=== PATIENT | male | born 1955 | race Caucasian/White ===

== ENCOUNTER → 2017-06-23 08:51 | Outpatient (CLI) | payer OTHER, SELFPAY ==
--- NOTE | 2017-06-23 08:53 | ECHOD_ITS ---
Reason For Study: AORTIC VAVLE REPLACEMENT Procedure This was a 2D Doppler, Color Flow transthoracic echocardiogram. Exam performed in department. Left Ventricle Normal LV size. The estimated ejection fraction is 52 %. Left ventricular systolic function is lower limits of normal. Transmitral diastolic flow velocities suggest severe (stage 3) diastolic dysfunction. No regional wall motion abnormalities noted. Right Ventricle Normal RV size. Normal systolic function. Atria The left atrium is mildly enlarged. The right atrium is moderately enlarged. Mitral Valve Normal mitral valve. Tricuspid Valve Normal tricuspid valve. Mild (1+) tricuspid valve insufficiency. Pulmonary artery systolic pressure is 25 mmHg. Aortic Valve Peak aortic valve gradient 19 mmHg. Mean aortic valve gradient 10 mmHg. Mild aortic stenosis. Calculated aortic valve area (continuity equation) is 1.3 cm2. Stable appearing mechanical aortic valve apparatus. Mild transvalvular insufficiency of the aortic valve. Pulmonic Valve Normal pulmonic valve. Trivial pulmonic valve insufficiency. Great Vessels Normal aortic root. The pulmonary artery is normal size. Normal inferior vena cava. Pericardium/Pleural No pericardial effusion. MMode/2D Measurements & Calculations LVIDd: 5.6 cm IVSd: 0.94 cm LVOT diam: 2.1 cm LVIDs: 3.8 cm LVPWd: 1.2 cm LVOT area: 3.6 cm2 RVDd: 3.4 cm FS: 32.5 % LA dimension: 5.2 cm LAV(MOD-bp): 56.3 ml EDV(MOD-sp4): 144.1 ml LAV(MOD-bp) Indexed: 26.7 ml/m2 ESV(MOD-sp4): 74.6 ml LAV(MOD-sp2): 39.5 ml EF(MOD-sp4): 48.2 % LAV(MOD-sp4): 64.6 ml EDV(MOD-sp2): 137.2 ml SV(MOD-sp4): 69.4 ml SV(MOD-sp2): 74.9 ml EF(MOD-sp2): 54.6 % LA A4 area: 21.5 cm2 RA A4 area: 24.1 cm2 Doppler Measurements & Calculations MV E max bre: 77.1 cm/sec Ao V2 max: 216.1 cm/sec AI max bre: 173.0 cm/sec MV A max bre: 34.0 cm/sec Ao max P.9 mmHg AI max P.2 mmHg MV E/A: 2.3 Ao V2 mean: 145.3 cm/sec AI dec slope: 128.1 cm/sec2 Ao mean P.8 mmHg AI P1/2t: 395.6 msec Ao V2 VTI: 46.8 cm COLE(I,D): 1.5 cm2 COLE(V,D): 1.3 cm2 LV V1 max: 80.7 cm/sec SV(LVOT): 71.7 ml PA V2 max: 83.6 cm/sec LV V1 max P.6 mmHg LV V1 mean P.4 mmHg LV V1 mean: 55.6 cm/sec LV V1 VTI: 20.1 cm TR max bre: 225.2 cm/sec TR max P.3 mmHg Interpretation Summary Normal LV size. The estimated ejection fraction is 52 %. Left ventricular systolic function is lower limits of normal. Transmitral diastolic flow velocities suggest severe (stage 3) diastolic dysfunction Stable appearing mechanical aortic valve apparatus. Calculated aortic valve area (continuity equation) is 1.3 cm2. Mild (1+) tricuspid valve insufficiency. Pulmonary artery systolic pressure is 25 mmHg. Compared to prior study, there is no significant change. Ordering Physician: Jordan Duenas Referring Physician: JENNY SAMS Performed By: Duyen Choudhury, RDCS, RVT
== END ==
PROVIDERS: Family Provider Family Medicine; PCP Family Medicine; Visit Provider Internal Medicine Cardiovascular Disease
DX: Z95.2 Presence of prosthetic heart valve (principal)
CPT/HCPCS: 93306

== ENCOUNTER → 2018-01-01 17:01 | Outpatient (CLI) | payer OTHER, SELFPAY ==
[2018-01-01 17:38] LABS: Anion Gap 4 (5-15); BUN 18 mg/dL (7-18); BUN/Creat Ratio 17.8 RATIO (10-20); Calcium,Total 9.1 mg/dL (8.5-10.1); Chloride 98 mmol/L (98-107); Creatinine, Serum 1.01 mg/dL (0.70-1.30); EST Glomerular Filtration Rate 80 mL/min (>60); Est Glom Filt Rate - Afr Amer 97 mL/min (>60); Glucose 93 mg/dL (74-106); Potassium 3.8 mmol/L (3.5-5.1); Sodium Level 134 mmol/L (136-145)
== END ==
PROVIDERS: Family Provider Family Medicine; PCP Family Medicine; Referring Provider Internal Medicine Cardiovascular Disease; Visit Provider Internal Medicine Cardiovascular Disease
DX: I71.2 Thoracic aortic aneurysm, without rupture (principal)
CPT/HCPCS: 36415; 80048

== ENCOUNTER → 2018-01-12 07:46 | Outpatient (CLI) | payer OTHER, SELFPAY ==
--- NOTE | 2018-01-12 07:48 | CT_ITS ---
STUDY: CTA CHEST REASON FOR EXAM: Male, 62 years old. Follow-up aortic dissection and repair. RADIATION DOSAGE (If Supplied By Facility): CTDIvol = ( 27.33 ) mGy, DLP = ( 608.77 ) mGycm TECHNIQUE: The examination was performed with the intravenous administration of 100 ml of Isovue 370 contrast material. Post-processing of the angiographic images was performed, with multiplanar reformation and 3D reconstruction. Individualized dose optimization techniques were used for this CT. COMPARISON: 11/24/2015 FINDINGS: There are stable postsurgical changes from a sternotomy and repair of the aortic root and the ascending aorta. There is a stable dissection with an intimal flap originating at the level of the distal ascending aorta and extending into the aortic arch mid descending thoracic aorta. Both the true and false lumina are opacified. The great vessels are patent and normal in caliber. There is no dissection in the visualized great vessels. The coronary arteries are visualized and are patent. The heart and pericardium are within normal limits. There are no filling defects in the pulmonary arteries to suggest pulmonary embolus. There are no pulmonary infiltrates or pleural effusions. There is no pneumothorax. Images through the upper abdomen demonstrate a stable cyst in the left kidney. There are no destructive osseous lesions. There is stable scoliosis noted in the spine. CT/CTA Chest W/WO Contrast IMPRESSION: Stable postsurgical changes from sternotomy and repair of the aortic root and ascending aorta. Patent great vessels with no evidence of dissection. Stable dissection originating in the distal ascending aorta which extends through the aortic arch and descending thoracic aorta. Electronically Signed: Kevyn Palmer, at 17:07 EDT Tel , Service support ,
== END ==
PROVIDERS: Family Provider Family Medicine; PCP Family Medicine; Referring Provider Internal Medicine Cardiovascular Disease; Visit Provider Internal Medicine Cardiovascular Disease
DX: I71.2 Thoracic aortic aneurysm, without rupture (principal)
CPT/HCPCS: 71275; Q9967

== ENCOUNTER 2018-11-09 16:07 | Emergency (ER) | payer OTHER, SELFPAY ==
[2018-07-16 09:04] VITALS: BMI 26.6
[2018-11-09 16:07] VITALS: BP 164/75; PULSE 43; RESP 18; TEMP 36.3; O2SAT 95; BMI 26.7
--- NOTE | 2018-11-09 16:19 | EKG12_ITS ---
Test Reason : ABNORMAL RHYTHM Blood Pressure : / mmHG Vent. Rate : 043 BPM Atrial Rate : 071 BPM P-R Int : 000 ms QRS Dur : 158 ms QT Int : 472 ms P-R-T Axes : 058 116 -47 degrees QTc Int : 398 ms Sinus rhythm with complete heart block and Wide QRS rhythm Non-specific intra-ventricular conduction block Abnormal ECG Confirmed by JOSEFINA HINSON, KIM ([id number]), tape editor RACQUEL BARRAZA ([id number]) on 11/11/2018 8:52:53 AM Referred By: CRIS/STEPHEN/STEFFI Confirmed By:KIM ROCHA MD
--- NOTE | 2018-11-09 16:23 | NURSING ---
NO OLD EKGS
--- NOTE | 2018-11-09 16:31 | RAD_ITS ---
STUDY: X-RAY CHEST REASON FOR EXAM: Male, 63 years old. Hypertension TECHNIQUE: PA and lateral views of the chest. COMPARISON: None. FINDINGS: monitor technician leads are present. The lungs are clear and expanded. There is no demonstrated pleural abnormality. The heart size is within normal limits. Status post tenotomy changes are noted. Normal mediastinum and harry. Normal visualized pulmonary arteries. Normal visualized aortic arch and descending thoracic aorta. There is a moderately severe thoracic dextroscoliosis. Normal visualized ribs, clavicles, and shoulders. There is no demonstrated abnormality of the visualized soft tissue structures of the upper abdomen. RAD/Chest PA and Lateral IMPRESSION: Status post sternotomy. Moderately severe thoracic dextroscoliosis. No acute cardiopulmonary disease process is seen. Electronically Signed: Sixto Davis MD at 16:52 EDT , Service support ,
--- NOTE | 2018-11-09 16:32 | ED.VIS.GEN ---
History of Present Illness Chief Complaint: Hypertension Detail of Chief Complaint: Slow heart rate Informant: Patient Onset: - - Unknown probably 1 to 2 weeks Context: - - Unknown Timing: - - Unknown Quality: Bradycardia Location: Heart Current Severity: Moderate Maximum Severity: Moderate Worsened by: Nothing Relieved by: Nothing Associated Symptoms: No associated symptoms Narrative: Patient states 1 week ago when he saw his doctor for testosterone injection he was told his heart rate is slow. He noted his heart rate was slower yesterday. He took the ER attempting to make his heart go faster. He states his heart rate did not increase and there was no change in his blood pressure. He denied dyspnea or dyspnea with exertion. He denies orthopnea. He denies pedal edema. He denies any symptoms. He is on Coumadin secondary to prosthetic aortic valve. He has history of aortic aneurysm which was repaired and the aortic valve had to be repaired. He states his local base brander Dr. Duenas. Prior similar symptoms: No Recent Illness/Hospitalization: No - Past Medical History (1) Aneurysm, thoracic aortic Status: Chronic (2) Diastolic dysfunction Status: Chronic (3) Essential (primary) hypertension Status: Chronic (4) First degree AV block Status: Chronic (5) H/O aortic valve replacement Status: Chronic Comment: Aortic aneurysm repair, Mechanical ([facility]) AVR, 06/11/96 (6) senior care current use of anticoagulant Status: Chronic Comment: Coumadin managed by Dr. Mike Dale (7) Non-rheumatic aortic stenosis Status: Chronic (8) Right bundle branch block Status: Chronic (9) Sinus bradycardia Status: Chronic Past Medical History - Allergies and Home Meds Allergies/Adverse Reactions: Allergies No Known Allergies Allergy (Verified 11/09/18 16:10) Primary Care Physician: Mike Dale [Primary Care Provider] - Prior records reviewed: Yes Surgical History: - - Repair of ascending aortic aneurysm and aortic valve Lives: Alone Smoking Status: Former smoker Alcohol: Occasional Drugs: None Review of Systems General: Denies: Chills, Fever, Sweats Eyes: Denies: Visual changes - bilaterally, Blurred Vision - bilaterally, Diplopia ENT: Denies: Rhinorrhea, Sore throat Cardiovascular: Denies: Chest pain, Palpitations, Heart racing Respiratory: Denies: Dyspnea, Cough, Dyspnea on exertion, Orthopnea, Paroxysmal nocturnal dyspnea Gastrointestinal: Denies: Abdominal pain, Nausea, Vomiting, Diarrhea, Melena, Hematochezia Genitourinary: Denies: Dysuria, Hematuria, Frequency Musculoskeletal: Denies: Myalgias, Arthralgias, Neck pain, Back pain, Swelling, Extremity Pain Skin: Denies: Rash, Wounds Neurological: Denies: Headache, Weakness, Numbness Hematologic: Reports: Easy bruising. Denies: Easy bleeding Allergy: Denies: Uticaria, Swelling of the mouth Physical Exam Vital Signs/Narrative: Vital Signs Temp Pulse Resp BP Pulse Ox 11/09/18 16:07 97.4 F L 43 L 18 164/75 H 95 Inital Vital Signs reviewed: Yes General: Well nourished, Well developed, No Acute Distress Head: Normocephalic, Atraumatic Eyes: Perrl, EOMI ENT: Moist mucous membranes, No rhinorrhea Neck: Supple, Nontender Cardiovascular: Regular rhythm, No murmurs, Normal S1, Normal S2, Bradycardia, - - Him in clinic secondary to prosthetic valve noted over the aortic listening area. Respiratory: No distress, CTA bilaterally, Chest nontender Abdomen: Soft, Nontender, Nondistended, Normal bowel sounds, No masses Back: Nontender, Normal Inspection Extremities: Nontender, No edema Skin: Normal color, No rash Neurological: Alert, Oriented x3, Cranial nerves II-XII grossly intact, Normal Strength, Normal Sensation, Normal DTR, Normal Gait Psychological: Normal affect, Normal Mood Diagnostic/Tx/Re-eval Chest X-Ray - ED: Read by ED Physician, - - X-ray reveals no acute pulmonary pathology. Cardiac silhouette is normal. Sternotomy wires noted. No abnormality of any osseous structures. Impressions Chest X-Ray 11/09/18 16:31 IMPRESSION: Status post sternotomy. Moderately severe thoracic dextroscoliosis. No acute cardiopulmonary disease process is seen. Electronically Signed: Sixto Davis MD at 16:52 EDT , Service support , 11/09/18 16:31 Chest PA and Lateral [RAD] Stat Laboratory Results 11/09/18 11/09/18 11/09/18 16:25 16:25 16:25 WBC 4.9 RBC 4.86 Hgb 14.6 Hct 43.8 MCV 90.1 MCH 30.0 MCHC 33.3 RDW Std Deviation 48.0 H RDW Coeff of Grace 14.6 Plt Count 157 MPV 9.3 Immature Gran % (Auto) 0.000 Neut % (Auto) 54.3 Lymph % (Auto) 24.7 [place] % (Auto) 16.4 H Eos % (Auto) 4.0 Baso % (Auto) 0.6 Absolute Neuts (auto) 2.7 Absolute Lymphs (auto) 1.22 Nucleated RBC % 0 PT 26.2 H INR 2.4 Sodium 137 Potassium 4.1 Chloride 105 Carbon Dioxide 28.0 Anion Gap 4 L BUN 19 H Creatinine 1.20 Estim Creat Clear Calc 73.06 Est GFR (MDRD) Af Amer 79 Est GFR (MDRD) Non-Af 65 BUN/Creatinine Ratio 15.8 Glucose 92 Calcium 8.8 Troponin I < 0.015 INR is therapeutic at 2.4. CBC, renal function and troponin are normal. - Rhythm Strip Rhythm Strip: Third-degree heart block Rate: 42 - EKG Initial EKG Interpretation: - - Third-degree heart block, ventricular rate is 43. There is also evidence of an intraventricular conduction delay. This is changed from prior. Prior: Changed - Medical Decision Making Patient with asymptomatic third-degree heart block that probably started 1 [address] Rosario was paged and he is his base brander and he places pacemakers. Awaiting callback. Appropriate work-up was obtained to assess renal function, H&H, troponin. Patient was placed on a monitor and will remain on a monitor. Patient was informed that Dr. Rosario is out of town. He he will need to be transferred to [place] since he has all care for placement of pacemaker. Poke with Dr. Lu base brander at [place]. Patient to be transferred to ICU/CCU for placement of pacemaker. 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
[2018-11-09 16:37] LABS: Absolute Lymphocyte Count 1.22 X10^3/uL (0.83-4.51); Absolute Neutrophil Count 2.7 X10^3/uL (2.0-7.7); Basophil# 0.03 X10^3/uL; Basophil% 0.6 % (0-1); Hematocrit 43.8 % (40-54); Hemoglobin 14.6 g/dL (13.0-16.5); Lymphocyte # 1.22 X10^3/ul (4.0); Lymphocyte % 24.7 % (19-41); Mean Corp Hgb Conc 33.3 g/dL (32-36); Mean Corpuscular Volume 90.1 fL (80-94); Mean Platelet Vol. 9.3 fl (6.2-12.0); Monocyte# 0.81 X10^3/uL; Monocyte% 16.4 % (0-10); NRBC Flagged by Analyzer 0 % (0-5); Neutrophil # 2.68 X10^3/uL (2.7-7.7); Neutrophil % 54.3 % (47-70); Platelet Count 157 K/mm3 (150-450); RBC Distribution Width CV 14.6 % (11.6-14.6); Red Blood Count 4.86 M/mm3 (4.6-6.2); White Blood Count 4.9 K/mm3 (4.4-11.0)
[2018-11-09 16:48] LABS: International Normalized Ratio 2.4; Prothrombin Time (Protime)PT. 26.2 SECONDS (11.7-14.9)
[2018-11-09 16:56] LABS: Anion Gap 4 (5-15); BUN 19 mg/dL (7-18); BUN/Creat Ratio 15.8 RATIO (10-20); Calcium,Total 8.8 mg/dL (8.5-10.1); Chloride 105 mmol/L (98-107); EST Glomerular Filtration Rate 65 mL/min (>60); Est Glom Filt Rate - Afr Amer 79 mL/min (>60); Estimated Creatinine Clearance 73.06 ml/min; Glucose 92 mg/dL (74-106); Potassium 4.1 mmol/L (3.5-5.1); Sodium Level 137 mmol/L (136-145)
[2018-11-09 17:28] VITALS: BP 157/73; PULSE 75; RESP 15; O2SAT 96
--- NOTE | 2018-11-09 18:02 | NURSING ---
CALLED [facility] TRANSFER LINE FOR DR GLASS
--- NOTE | 2018-11-09 18:22 | ED.RN ---
pt heart rate 37. Pt A&O x3, denies pain or discomfort. Also denies dizziness, lightheadedness.
--- NOTE | 2018-11-09 18:24 | NURSING ---
CALLED PATSY LOPEZ, COMING FROM [place]
--- NOTE | 2018-11-09 18:28 | CASEMGMT ---
According to [facility] PPO Provider Directory, In [facility]: SCOTT, Camelia Hernández, [facility], [facility]. Celeste Byrnes, BARICM
[2018-11-09 18:32] VITALS: BP 169/81; PULSE 40; RESP 14; O2SAT 98
== END 2018-11-09 18:51 | disposition short-term general hospital (02) ==
PROVIDERS: Emergency Provider Emergency Medicine; Family Provider Family Medicine; PCP Family Medicine
DX: I44.2 Atrioventricular block, complete (principal); I10 Essential (primary) hypertension; Z95.2 Presence of prosthetic heart valve; Z98.890 Other specified postprocedural states; Z79.01 Long term (current) use of anticoagulants; Z79.899 Other long term (current) drug therapy; Z87.891 Personal history of nicotine dependence
CPT/HCPCS: 71046; 80048; 84484; 85025; 85610; 93005; 99285; A4216

== ENCOUNTER 2018-12-12 18:10 | Emergency (ER) | payer OTHER, SELFPAY ==
[2018-12-11 12:01] VITALS: BMI 26.7
[2018-12-12 18:12] VITALS: BP 161/78; PULSE 87; RESP 12; TEMP 36.8; O2SAT 98; BMI 26.9
[2018-12-12] MEDS: Lidocaine/Epi/Tetracaine 50 ML 1 APPLIC TOPICAL (19:15)
--- NOTE | 2018-12-12 22:22 | ED.DCSUM_ITS ---
- ER Visit Summary Date of Service: 12/12/18 Chief Complaint: Suprapubic skin abscess History of Present Illness: The patient is a 63 M history of a pacemaker and aortic aneurysm repair. Patient states on Friday he developed a abscess in the suprapubic region. Urgent care put him on clindamycin. When things get better he saw his primary care physician and stop the clindamycin and start him on Augmentin. But still did get better he came to the ER to have it drained. He denies any fever or chills. No other symptoms. Physical Examination: Older male no acute distress vital signs stable afebrile. HEENT exam unremarkable. Lungs clear to auscultation. Heart regular rhythm no murmur. Abdomen soft nontender. Extremities moves all 4. Neurovascular intact. External area in the suprapubic region there is a small dime to quarter size subcu abscess. With indurated tissue. No significant cellulitis. No crepitance or subcu air. There is fluctuance. His external exam otherwise unremarkable nontender. Extremities and back exam are unremarkable. Test Results: None Emergency Department Course and Treatment: Procedure note: Suprapubic subcu abscess. Locally anesthetized with lidocaine. I made a horizontal 2 cm incision. Pus and blood was expressed. About 2 cc of pus. The wound was probed. Irrigated. Explored. I placed about 4 inches of quarter inch packing gauze into the abscess to allow to stay open and drain. Patient tolerated procedure well. Treatment Plan: Continue on his Augmentin daily. Warm compresses, warm shower or soaks to the area. Tylenol for pain. Follow-up if not improving return if worse. Disposition: Discharge Impression: Suprapubic subcutaneous abscess Incision and drainage by ER This note was generated with Moxim[employer] dictation software. It may contain incorrect words, spelling, and punctuation that were not noted in review of the chart prior to signing ED Disposition - Plan for ED Patient: Referrals: Mike Dale [Primary Care Provider] -
--- NOTE | 2018-12-12 22:26 | ED.DEP ---
ED Disposition - Plan for ED Patient: Disposition: Home or Assisted Living Instructions: ABSCESS, Incision and Drainage Referrals: Mike Dale [Primary Care Provider] - 3-5 Days if not improving Additional Instructions: Warm soaks, compresses or hot shower to the area. Tylenol for pain. The packing out in 5 days. Augmentin twice daily until gone. Return if worse or follow-up with primary care physician if not improving.
[2018-12-12 22:52] VITALS: BP 148/86; PULSE 72; RESP 16; O2SAT 97
== END 2018-12-12 22:53 | disposition home or self-care (01) ==
PROVIDERS: Emergency Provider Emergency Medicine; Family Provider Family Medicine; PCP Family Medicine
DX: L02.211 Cutaneous abscess of abdominal wall (principal); Z95.0 Presence of cardiac pacemaker; Z79.01 Long term (current) use of anticoagulants; Z79.899 Other long term (current) drug therapy
CPT/HCPCS: 10061; 10060; 99284

== ENCOUNTER → 2019-02-03 07:38 | Outpatient (CLI) | payer OTHER, SELFPAY ==
[2019-02-03 08:26] LABS: International Normalized Ratio 1.8
[2019-02-03 08:32] LABS: Prothrombin Time (Protime)PT. 21.1 SECONDS (11.7-14.9)
== END ==
PROVIDERS: Family Provider Family Medicine; PCP Family Medicine; Referring Provider Orthopaedic Surgery; Visit Provider Orthopaedic Surgery
DX: Z01.818 Encounter for other preprocedural examination (principal); Z79.01 Long term (current) use of anticoagulants
CPT/HCPCS: 36415; 85610

== ENCOUNTER → 2020-07-13 07:48 | Outpatient (CLI) | payer OTHER, SELFPAY ==
[2020-07-04 14:23] VITALS: BMI 27.4
--- NOTE | 2020-07-13 07:50 | ECHOD_ITS ---
Version 2 Reason For Study: VALVE REPLACEMENT EVAL Procedure This was a 2D Doppler, Color Flow transthoracic echocardiogram. Exam performed in department. Left Ventricle Normal LV size. The estimated ejection fraction is 50 %. Left ventricular systolic function is lower limits of normal. Stage 1 diastolic dysfunction. No regional wall motion abnormalities noted. Right Ventricle Normal RV size. ICD or pacer leads identified within the right ventricle. Normal systolic function. Atria Normal left atrium. The right atrium is moderately enlarged. Mitral Valve Normal mitral valve. Mild (1+) eccentric mitral valve insufficiency. Tricuspid Valve Normal tricuspid valve. Mild (1+) tricuspid valve insufficiency. Pulmonary artery systolic pressure is 26 mmHg. Aortic Valve Peak aortic valve gradient 15 mmHg. Mean aortic valve gradient 8 mmHg. Mild aortic stenosis. Calculated aortic valve area (continuity equation) is 1.4 cm2. Stable appearing mechanical aortic valve apparatus. Pulmonic Valve Normal pulmonic valve. Great Vessels Normal aortic root. The pulmonary artery is normal size. Normal inferior vena cava. Pericardium/Pleural No pericardial effusion. MMode/2D Measurements & Calculations LVIDd: 5.5 cm IVSd: 0.93 cm LVOT diam: 2.1 cm LVIDs: 3.8 cm LVPWd: 0.94 cm LVOT area: 3.4 cm2 RVDd: 4.0 cm FS: 30.0 % Ao root diam: 3.2 cm LAV(MOD-bp): 57.5 ml LVAd ap4: 42.6 cm2 LAV(MOD-bp) Indexed: 26.3 ml/m2 EDV(MOD-sp4): 167.4 ml LAV(MOD-sp2): 44.6 ml EDV(sp4-el): 163.9 ml LAV(MOD-sp4): 59.8 ml LVAs ap4: 28.7 cm2 ESV(MOD-sp4): 84.1 ml ESV(sp4-el): 87.2 ml EF(MOD-sp4): 49.8 % EF(sp4-el): 46.8 % SV(MOD-sp4): 83.3 ml SV(sp4-el): 76.7 ml LA A4 area: 19.7 cm2 LA dimension(2D): 3.6 cm RA A4 area: 26.2 cm2 Time Measurements MV dec time: 0.16 sec Doppler Measurements & Calculations MV E max grant: 57.3 cm/sec Lat Peak E' Grant: 10.5 cm/sec Med Peak E' Grant: 6.7 cm/sec MV A max grant: 85.1 cm/sec E/E' lat: 5.5 E/E' med: 8.6 MV E/A: 0.67 Ao V2 max: 194.0 cm/sec LV V1 max: 77.3 cm/sec SV(LVOT): 54.8 ml Ao max P.1 mmHg LV V1 max P.4 mmHg Ao V2 mean: 140.6 cm/sec LV V1 mean P.4 mmHg Ao mean P.8 mmHg LV V1 mean: 55.6 cm/sec Ao V2 VTI: 38.9 cm LV V1 VTI: 16.0 cm COLE(I,D): 1.4 cm2 COLE(V,D): 1.4 cm2 PA V2 max: 108.3 cm/sec PI end-d grant: 81.1 cm/sec TR max grant: 238.6 cm/sec TR max P.8 mmHg ECHO/Echo Complete Interpretation Summary Normal LV size. The estimated ejection fraction is 50 %. Left ventricular systolic function is lower limits of normal. Pulmonary artery systolic pressure is 26 mmHg. Stage 1 diastolic dysfunction. Stable appearing mechanical aortic valve apparatus. ICD or pacer leads identified within the right ventricle. Calculated aortic valve area (continuity equation) is 1.4 cm2. Ordering Physician: Jordan Duenas Referring Physician: JENNY SAMS Performed By: Jocy Deal RDCS
== END ==
PROVIDERS: PCP Family Medicine; Referring Provider Internal Medicine Cardiovascular Disease; Visit Provider Internal Medicine Cardiovascular Disease
DX: Z95.2 Presence of prosthetic heart valve (principal)
CPT/HCPCS: 93306

== ENCOUNTER → 2021-02-15 12:48 | Outpatient (CLI) | payer OTHER, SELFPAY ==
--- NOTE | 2021-02-15 12:54 | CT_ITS ---
STUDY: CT ABDOMEN AND PELVIS WITH AND WITHOUT CONTRAST REASON FOR EXAM: Male, 65 years old. GROSS HEMATURIA RADIATION DOSAGE (If Supplied By Facility): CTDIvol = ( 18.96 ) mGy, DLP = ( 2257.41 ) mGycm TECHNIQUE: Transaxial images were obtained from the dome of the diaphragm to the symphysis pubis without oral contrast. 100ML ISOVUE 300 was administered. Sagittal and coronal images were reconstructed. Individualized dose optimization techniques were used for this CT. COMPARISON: None. FINDINGS: The visualized lung bases are unremarkable. The visualized portions of the heart are within normal limits. Normal liver. Normal gallbladder and extrahepatic biliary system. Normal spleen. Normal pancreas. Normal bilateral adrenal glands. There is a 1.7 cm cyst in the anterior upper pole of the right kidney as well as a 2.1 cm cyst in the medial inferior pole of the right kidney. There is a 4 mm nonobstructive calculus at the lower pole calyx of the right kidney. There is a 9.5 cm x 9 cm x 9.3 cm cyst in the posterior upper pole of the left kidney. There is also evidence of a 6.6 cm x 4.6 m cyst in the lateral lower pole of the left kidney. Normal visualized stomach. Normal small intestine. There are multiple colonic diverticula consistent with diverticulosis. The appendix is visualized and appears normal. Normal abdominal aorta. Normal inferior vena cava. Normal retroperitoneum. Normal urinary bladder. There is enlargement of the prostate gland. It measures 4.9 cm x 5 cm. This causes indentation of the bladder base. There is evidence of prostatic calcification. Normal abdominal wall. There are degenerative changes of the visualized lumbar spine. Levoscoliosis. CT/CT Abd/Pelvis W/WO Contrast IMPRESSION: Bilateral renal cysts more prominent in the left kidney. Prostatic enlargement with calcifications and indentation at the bladder base. Electronically Signed: Hayes Rivero MD at 14:25 EST , Service support ,
[2021-02-15 13:17] LABS: CREATININE FINGERSTICK 0.8 mg/dL (0.70-1.30); EGFR FINGERSTICK > 60.0000 mL/min (>60)
== END ==
PROVIDERS: PCP Family Medicine; Referring Provider Urology; Visit Provider Urology
DX: R31.0 Gross hematuria (principal)
CPT/HCPCS: 74178; Q9967; A4216

== ENCOUNTER 2021-05-08 16:48 | Outpatient (CLI) | payer OTHER, SELFPAY ==
--- NOTE | 2021-05-08 14:20 | CYSPIN_PTH ---
PATIENT: REBECCA KENYON LOC: [facility] U#:[id number] AGE/SX: 65/M ROOM: RE05/08/[address]: Dr. Bernardino López MD : 1955 BED: DIS: 05/08/2021 SPEC #: [id number] RECD: 05/09/21 08:36 STATUS: ISHAAN RIVAS #: [id number] AYDEN: 05/08/21 14:[address]: Bernardino López DEPT: CYTOLOGY RECD BY: Sammie Andrade ENTERED: 05/09/21 08:37 SP TYPE: CYSPIN FL OTHR DR: Dr. Mike Dale MD Tissues: Urine Procedures: Pap Stain (control) Special Stain Group II Cytospin Fluid HEADER OPERATION: Not noted PRE-OP DIAGNOSIS: BPH with lower urinary tract symptoms TISSUE SUBMITTED: Urine for cytology DIAGNOSIS CYTOLOGY Urine for cytology (cytospin): Negative for malignant cells. Acute inflammation. See comment. SJ:jenny 05/09/2021 COMMENT Clinical correlation and appropriate follow up are necessary. CYTOLOGY STUDY Slides are reviewed. CYTOLOGY GROSS Received is 80 ml of gold cloudy fluid labeled with the patient's name and and designated per the requisition as urine. Submitted for cytology preparation. / jenny 05/09/2021 TC:2 CPT: 24339
[2021-05-08 17:42] LABS: Cytology, Body Fluid / CSF SEE PATHOLOGY REPORT
== END 2021-05-08 23:59 | disposition home or self-care (01) ==
PROVIDERS: PCP Family Medicine; Visit Provider Urology
DX: N40.1 Benign prostatic hyperplasia with lower urinary tract symptoms (principal)
CPT/HCPCS: 88108; 88313

== ENCOUNTER → 2022-05-09 | Outpatient (CLI) | payer OTHER, SELFPAY ==
--- NOTE | 2022-05-09 13:56 | CYSPIN_PTH ---
PATIENT: REBECCA KENYON [facility] U[facility][id number] AGE/SX: 66/M ROOM: RE05/09/[address]: Dr. Bernardino López MD : 1955 BED: DIS: 05/09/2022 SPEC #: [id number] RECD: 05/10/22 08:04 STATUS: ISHAAN RIVAS #: [id number] AYDEN: 05/09/22 13:[address]: Bernardino López DEPT: CYTOLOGY RECD BY: Sammie Andrade ENTERED: 05/10/22 08:05 SP TYPE: CYSPIN FL OTHR DR: Dr. Mike Dale MD Tissues: Urine Procedures: Pap Stain (control) Special Stain Group II Cytospin Fluid HEADER OPERATION: Not noted PRE-OP DIAGNOSIS: Hematuria TISSUE SUBMITTED: Urine for cytology DIAGNOSIS CYTOLOGY Urine for cytology (cytospin): Negative for malignant cells. Acute inflammation. AM:jenny 05/10/2022 CYTOLOGY STUDY Slides are reviewed. CYTOLOGY GROSS Received is 25 ml of yellow cloudy fluid labeled with the patient's name and and designated per the requisition as urine. Submitted for cytology preparation. / jenny 05/09/2022 TC:3 CPT: 15681 ADDENDUM ADDENDUM ADDENDUM ADDENDUM ADDENDUM 05/30/2022 11:14 ADDENDUM 05/30/2022 11:14 ADDENDUM 05/30/2022 11:14 ADDENDUM 05/30/2022 11:14 ADDENDUM 05/30/2022 11:14 The specimen is consistent with [facility] diagnostic category II (negative for high-grade urothelial carcinoma, [facility]GUC). AM:jenny 05/30/2022
[2022-05-09 16:53] LABS: Cytology, Body Fluid / CSF SEE PATHOLOGY REPORT
== END | disposition home or self-care (01) ==
LOC: LABSPEC 16:30
PROVIDERS: PCP Family Medicine; Referring Provider Urology; Visit Provider Urology
DX: R31.9 Hematuria, unspecified (principal)
CPT/HCPCS: 88108; 88313

== ENCOUNTER → 2022-10-03 | Outpatient (CLI) | payer OTHER, SELFPAY ==
[2022-10-03 15:57] LABS: AST(SGOT) 52 U/L (15-37); Alanine Aminotransfer ALT/SGPT 38 U/L (16-61); Albumin, Serum 3.5 g/dL (3.2-5.0); Alkaline Phosphatase 48 U/L (45-117); Anion Gap 5 (5-15); BUN 14 mg/dL (7-18); BUN/Creat Ratio 13.7 RATIO (10-20); Bilirubin, Direct 0.12 mg/dL (0.00-0.30); Calcium,Total 8.8 mg/dL (8.5-10.1); Chloride 102 mmol/L (98-107); Cholesterol 186 mg/dL (200); Creatinine, Serum 1.02 mg/dL (0.70-1.30); EST Glomerular Filtration Rate 78 mL/min (>60); Est Glom Filt Rate - Afr Amer 94 mL/min (>60); Globulin 3.7 g/dL (2.2-4.2); Glucose 89 mg/dL (74-106); High Density Lipoprotein 49 mg/dL; Protein, Total 7.2 g/dL (6.4-8.2); Sodium Level 136 mmol/L (136-145); Triglycerides 301 mg/dL; Very Low Density Lipoprotein 60 mg/dL (5-40)
== END | disposition home or self-care (01) ==
LOC: LAB 14:58
PROVIDERS: PCP Family Medicine; Referring Provider Internal Medicine Cardiovascular Disease; Visit Provider Internal Medicine Cardiovascular Disease
DX: I10 Essential (primary) hypertension (principal); Z95.2 Presence of prosthetic heart valve
CPT/HCPCS: 36415; 80048; 80061; 80076

== ENCOUNTER → 2023-08-18 | Outpatient (CLI) | payer BC, SELFPAY ==
--- NOTE | 2023-08-18 07:52 | MRI_ITS ---
STUDY: MRI RIGHT SHOULDER REASON FOR EXAM: Male, 68 years old. PAIN, STRAIN, OSTEOARTHRITIS TECHNIQUE: Standardized fat and water weighted pulse sequences were obtained in all 3 orthogonal planes. COMPARISON: None. FINDINGS: There is supraspinatus tendinosis with high-grade partial (if not full-thickness) thickness tearing of the anterior proximal tendon (coronal T2 series 5 images 14-16; sagittal T2 series 6 image 13). There is subscapularis tendinosis with partial tearing of the distal subscapularis tendon (axial PD series 2 images 12-15). Normal infraspinatus tendon. Normal teres minor tendon. Normal supraspinatus muscle. Normal infraspinatus muscle. Normal subscapularis muscle. Normal teres minor muscle. There is a small glenohumeral joint effusion. Normal humeral head and visualized proximal humerus. There is severe thinning of the long biceps tendon in the bicipital groove with nonvisualization of its intracapsular portion, compatible with long biceps tendon tear. Normal labrum. Normal capsulo-ligamentous complex. There is hypertrophic acromioclavicular arthrosis, with inferior osteophyte formation, with mild effacement of the supraspinatus myotendinous junction (coronal T2 series 5 image 14). There is a Type II morphology (curved), with a neutral orientation. There is a small amount of subacromial-subdeltoid bursal fluid, with mild synovitis. Normal visualized coracohumeral and coracoacromial ligaments. Normal quadrilateral space. Normal axillary space. Normal deltoid muscle. Normal trapezius muscle. MRI/Upper Ext Joint Only(Routine) IMPRESSION: Supraspinatus tendinosis with high-grade partial (if not full-thickness) thickness tearing of the anterior proximal tendon. Subscapularis tendinosis with partial tearing of the distal subscapularis tendon. Small glenohumeral joint effusion. Long biceps tendon tear. Hypertrophic acromioclavicular arthrosis, with inferior osteophyte formation, with mild effacement of the supraspinatus myotendinous junction. Small amount of subacromial-subdeltoid bursal fluid, with mild synovitis. Electronically Signed: Fox Roth MD at 9:39 EDT ,
[2023-08-18 08:33] VITALS: BP 146/102; PULSE 100; RESP 18; O2SAT 96
[2023-08-18 08:43] VITALS: BP 141/76; PULSE 99; O2SAT 95
[2023-08-18 08:53] VITALS: BP 122/84; PULSE 100; O2SAT 96
== END | disposition home or self-care (01) ==
PROVIDERS: PCP Family Medicine; Referring Provider Physician Assistant Surgical; Visit Provider Physician Assistant Surgical
DX: M25.511 Pain in right shoulder (principal); M19.011 Primary osteoarthritis, right shoulder; S46.111A Strain of muscle, fascia and tendon of long head of biceps, right arm, initial encounter
CPT/HCPCS: 73221

== ENCOUNTER 2023-10-13 05:34 | Day surgery (SDC) | payer BC, SELFPAY ==
[2023-09-30 15:25] LABS: Absolute Neutrophil Count 3.9 X10^3/uL (2.0-7.7); Basophil# 0.04 X10^3/uL; Basophil% 0.6 % (0-1); Eosinophil# 0.24 X10^3/uL; Eosinophils% 3.7 % (0-5); Hematocrit 48.9 % (40-54); Hemoglobin 16.4 g/dL (13.0-16.5); Lymphocyte % 21.8 % (19-41); Mean Corp Hgb Conc 33.5 g/dL (32-36); Mean Corpuscular Hgb 31.1 pg (27.0-32.0); Mean Corpuscular Volume 92.6 fL (80-94); Mean Platelet Vol. 9.5 fl (6.2-12.0); Monocyte# 0.87 X10^3/uL; Monocyte% 13.5 % (0-10); NRBC Flagged by Analyzer 0 % (0-5); Neutrophil # 3.87 X10^3/uL (2.7-7.7); Neutrophil % 60.2 % (47-70); Platelet Count 161 K/mm3 (150-450); RBC Distribution Width CV 14.1 % (11.6-14.6); RBC Distribution Width SD 47.8 fl (35.1-43.9); Red Blood Count 5.28 M/mm3 (4.6-6.2); White Blood Count 6.4 K/mm3 (4.4-11.0)
[2023-09-30 15:44] LABS: Anion Gap 8 (5-15); BUN 12 mg/dL (7-18); BUN/Creat Ratio 11.5 RATIO (10-20); Calcium,Total 9.4 mg/dL (8.5-10.1); Chloride 102 mmol/L (98-107); Creatinine, Serum 1.04 mg/dL (0.70-1.30); EST Glomerular Filtration Rate 76 mL/min (>60); Est Glom Filt Rate - Afr Amer 92 mL/min (>60); Glucose 86 mg/dL (74-106); Potassium 3.7 mmol/L (3.5-5.1); Sodium Level 137 mmol/L (136-145)
[2023-09-30 15:58] LABS: AST(SGOT) 45 U/L (15-37); Alanine Aminotransfer ALT/SGPT 44 U/L (16-61); Albumin, Serum 3.8 g/dL (3.2-5.0); Alkaline Phosphatase 53 U/L (45-117); Bilirubin, Direct 0.26 mg/dL (0.00-0.30); Cholesterol 182 mg/dL (200); Globulin 3.4 g/dL (2.2-4.2); High Density Lipoprotein 59 mg/dL; Protein, Total 7.2 g/dL (6.4-8.2); Triglycerides 142 mg/dL; Very Low Density Lipoprotein 28 mg/dL (5-40)
[2023-10-13] VITALS (12 sets, daily range): BP systolic 107–135; BP diastolic 65–114; PULSE 60–65; RESP 14–18; TEMP 36.1–37; O2SAT 90–100; BMI 27.9
[2023-10-13 06:08] LABS: INR Fingerstick 1.2; Prothrombin Time Fingerstick 13.1 SEC (11.7-14.9)
[2023-10-13] MEDS: Lactated Ringers 1,000 ML 15 ML IV (06:13)
--- NOTE | 2023-10-13 07:08 | PCM.PRE.AN2 ---
ASA Classification* ASA Classification ASA Classification: 3 Assessment & Plan Anesthesia* Anesthesia Assessment Anesthesia Assessment: Discussed sedation and/or anesthesia options, risks, benefits, and alternatives with patient/parents/legal guardian/POA. Questions invited. The patient/parents/legal guardian/POA seems to understand and agrees to proceed with anesthesia plan. Reviewed the physical assessment, medical history, allergy history and patient home medications list prior to surgery/procedure/anesthetic and documented any changes. Performed airway and anesthesia risk assessments. Anesthesia Type Anesthesia Type: General (see written pre anesthesia record for full assessment) Anesthesia Focused Assessment* Temperature: 98.6 F Pulse Rate: 65 Blood Pressure: 125/80 Respiratory Rate: 18 Pulse Ox: 100 Airway Assessment Mouth opens: >3 cm Mallampati Score: II Focused Labs Anesthesia Preop lab: CBC WBC 6.4 K/mm3 (4.4-11.0) 09/30/23 14:41 RBC 5.28 M/mm3 (4.6-6.2) 09/30/23 14:41 Hgb 16.4 g/dL (13.0-16.5) 09/30/23 14:41 Hct 48.9 % (40-54) 09/30/23 14:41 Plt Count 161 K/mm3 (150-450) 09/30/23 14:41 CHEMISTRY Potassium 3.7 mmol/L (3.5-5.1) 09/30/23 14:41 Sodium 137 mmol/L (136-145) 09/30/23 14:41 BUN 12 mg/dL (7-18) 09/30/23 14:41 Creatinine 1.04 mg/dL (0.70-1.30) 09/30/23 14:41 Glucose 86 mg/dL (74-106) 09/30/23 14:41 COAG PT 21.1 SECONDS (11.7-14.9) H 02/03/19 07:43 Pre-Assessment Diagnosis/Proposed Procedure Planned Operative Procedure(s): (R) Arthroscopy,Shoulder Rotator Cuff Repair, Subacromial decompression, Distal Clavicle Excision Anesthesia History Anesthesia History - paralegal specialist: Anesthesia History - paralegal specialist Hx Hospitalization No 10/03/23 10:07 Any Problems With Anesthesia No 10/03/23 10:07 Cholinesterase deficiency No 10/03/23 10:07 You/Your Family Experience No 10/03/23 10:07 fever (hyperthermia) with Relationship Recent Exposure to Contagious No 10/13/23 06:14 Disease Does patient have nerve No 10/03/23 10:07 stimulator Patient instructed to have device shut off --Does patient have Pacemaker No 10/13/23 06:14 or ICD? When Was Last Pacemaker Check QUESTION #4 FULL TEXT: You/Your Family Experience fever (hyperthermia) with Anesthesia Last Oral Intake Last Oral intake: Last Oral Intake NPO since 03:00 10/13/23 06:14 Meds taken in AM with sips of water? Meds patient instructed to see home med list 10/13/23 06:14 take am of surgery PONV PONV - paralegal specialist: PONV - paralegal specialist Female No 10/03/23 10:07 HX of Motion Sickness No 10/03/23 10:07 HX of N/V After Surgery No 10/03/23 10:07 Non-Smoker Yes 10/03/23 10:07 Duration of Surgery greater Yes 10/03/23 10:07 than 60 minutes Number of Risk Factors 2 10/03/23 10:07 PONV Score Moderate Risk 10/03/23 10:07 Height & Weight Height & Weight: Anesthesia: Height & Weight Height 6 ft 1 in 10/13/23 06:14 Weight: 96 kg 10/13/23 06:14 Body Mass Index (BMI) 27.9 10/13/23 06:14 Respiratory Assessment Respiratory Assessment - paralegal specialist: Respiratory Tract Infection Hx - paralegal specialist Hx Respiratory Tract Infection No 10/03/23 10:07 STOP Sleep Apnea STOP Sleep Apnea - paralegal specialist: STOP Sleep Apnea - paralegal specialist Hx Hypertension Yes 10/03/23 10:07 Hx Sleep Apnea No 10/03/23 10:07 CPAP BIPAP Do you snore loudly (louder No 10/03/23 10:07 than talking or can be heard Do you often feel tired/ No 10/03/23 10:07 fatigued/ sleepy during daytime? Has anyone observed you stop No 10/03/23 10:07 breathing during sleep? STOP Results Negative 10/03/23 10:07 QUESTION #5 FULL TEXT : Do you snore loudly (louder than talking or can be heard through closed doors)? 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 Specify any problems Hx of Preganancy in last 3 N/A 10/03/23 10:07 Months Nurse Filling Out Transfusion [facility] 10/03/23 10:07 & Questions: Date: 10/03/23 10/03/23 10:07 Time: 10:22 10/03/23 10:07 Patient unable to answer at this time (ie. confused, unrespo /Reproduction History /Reproductive History - paralegal specialist: /Reproductive Hx- paralegal specialist Hx Now Gestational Age (in weeks): EDC: Hx Hx Para Hx Section SAB Active Medications Active Medications: Current Medications Generic Name Dose Route Start Last Admin Trade Name Freq PRN Reason Stop Dose Admin Cefazolin Sodium 2 gm/ Sodium 110 mls @ 150 mls/hr 10/13/23 07:30 Chloride IV 10/13/23 08:13 PREOP ONE Lactated Ringer's 1,000 mls @ 15 mls/hr 10/13/23 05:45 10/13/23 06:13 IV 15 mls/hr .Q48H ADALBERTO Administration PFSH Medical History Wears glasses Alcohol use Arthritis Prostate disease Gastric reflux Non-smoker History of echocardiogram Hypertension Cardiology follow-up encounter History of cataract Complete heart block Non-rheumatic aortic stenosis Diastolic dysfunction Essential (primary) hypertension First degree AV block Aneurysm, thoracic aortic Right bundle branch block Sinus bradycardia Home Medications ?Medication ?Instructions ?Recorded ?Last Taken ?Type alprazolam 0.25 mg tablet 0.25 mg PO QHS 05/28/17 10/12/23 History doxazosin 4 mg tablet 4 mg PO DAILY 05/28/17 10/12/23 History losartan 50 mg tablet 50 mg PO DAILY 06/03/17 10/13/23 History hydrochlorothiazide 25 mg tablet 25 mg PO DAILY 11/09/18 10/12/23 History effdwbdl-tn-jhahp 300 mcg-K 60 1 tab PO DAILY supplement 11/09/18 11/09/18 History mcg-lycop 600 mcg-lutein 300 mcg tablet tamsulosin 0.4 mg capsule 0.4 mg PO BID prostate 11/09/18 10/12/23 History melatonin 10 mg capsule 10 mg PO HS PRN sleep 11/02/19 Unknown History amoxicillin 500 mg capsule 2,000 mg PO ONCE #8 caps 07/04/20 Unknown History dicyclomine 10 mg capsule 10 mg PO BID PRN abdominal pain 01/18/21 Unknown History metoprolol succinate 25 mg 25 mg PO DAILY 09/28/21 10/13/23 History tablet,extended release 24 hr warfarin 5 mg tablet 5 mg PO SUTUWETHSA 10/03/22 10/05/23 History warfarin 5 mg tablet 7.5 mg PO MOFR 10/03/22 10/03/23 History dutasteride 0.5 mg capsule 0.5 mg PO DAILY 10/03/23 10/12/23 History enoxaparin 80 mg/0.8 mL 80 mg subcut Q24H 10/03/23 10/12/23 History subcutaneous syringe omeprazole 20 mg capsule,delayed 20 mg PO DAILY 10/03/23 10/13/23 History release testosterone 80 mg IM SA 10/03/23 10/11/23 History xmlffozgeofg-qxk-nbqyb acid-vit 1 tab PO DAILY 10/13/23 10/12/23 History K-lycop 400 mcg-20 mcg-370 mcg tablet (Men 50 Plus Advanced One Daily) Allergy/AdvReac Type Severity Reaction Status Date / Time No Known Allergies Allergy Verified 10/13/23 05:44 Family History Brother , of drowning No problems noted. Brother Obesity Brother H/O cardiac radiofrequency ablation Tachycardia Son negative for marfan's Daughter negative for marfan's Other Family history of hypertension Surgical History History of hernia surgery History of back surgery (~1972) History of rotator cuff surgery Trigger finger (07/04/20) History of permanent cardiac pacemaker placement (11/12/18) H/O aortic valve replacement (06/11/96) History of thoracic aortic aneurysm repair (06/11/96) Social History Smoking Status: Never smoker alcohol intake: current alcohol intake frequency: 0-2 drinks per day Alcohol type: wine substance use type: does not use caffeine: Yes Type: carbonated beverages Number of servings: 1 and coffee Number of servings: 2 Review of Systems (Anesthesia) ROS Narrative System reviewed and no additional complaints, except as documented.
[2023-10-13] MEDS: Cefazolin 2 GM in 0.9% Normal Saline (100mL Bag) 100 ML IV (07:43)
[2023-10-13] MEDS: Epinephrine (1 mg/ml) 1 MG/ML VIAL (08:19)
--- NOTE | 2023-10-13 09:23 | PCM.POST.ANE ---
Anesthesia: Postop Eval I Current Vital Signs Temperature: 97 F Pulse Rate: 60 Blood Pressure: 125/80 Respiratory Rate: 16 Pulse Ox: 94 Oxygen Delivery Method: Room Air Assessment Airway patent: Yes Spontaneous unlabored respirations: Yes Mental status: Awake and Calm nausea: No Vomiting: No Anesthesia Complication: No Fluid Hydration Crystalloid volume administer (ml): 1,500 Total IV fluid infused: 1,500 Progress Note Anesthesia document: Postop Eval 1 completed: Yes
--- NOTE | 2023-10-13 09:47 | POSTOPAN2_ITS ---
Anesthesia Postop Eval I Sum Postop Eval Completion status Anesthesia document: Postop Eval 1 completed: Yes Anesthesia Postop Eval I Summary Anesthesia Postop Eval I Summary: Anesthesia Postop Eval I: Assessment Summary Airway patent Yes 10/13/23 09:24 HAND ALTERATIONS [email or web address] Spontaneous unlabored Yes 10/13/23 09:24 HAND ALTERATIONS [email or web address] respirations Mental status Awake,Calm 10/13/23 09:24 HAND ALTERATIONS [email or web address] nausea No 10/13/23 09:24 HAND ALTERATIONS [email or web address] Vomiting No 10/13/23 09:24 HAND ALTERATIONS [email or web address].[email or web address] Anesthesia Postop Eval I: Fluid Summary Crystalloid volume administer 1,500 10/13/23 09:24 HAND ALTERATIONS [email or web address].[email or web address] (ml) Colloids volume administered ( ml) Blood Product volume administered (ml) Total IV fluid infused 1,500 10/13/23 09:24 HAND ALTERATIONS [email or web address].[email or web address] Anesthesia Postop Eval I: Summary Notes Anesthesia Complication No 10/13/23 09:24 HAND ALTERATIONS [email or web address] Anesthesia Complication Comment: Post-operative progress note Anesthesia: Postop Eval II Evaluation Mental status: Awake Pain Level: 0 nausea: No Vomiting: No
--- NOTE | 2023-10-13 09:47 | PCM.POSTANE2 ---
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[employer] DEVELOPMENT.[email or web address] Spontaneous unlabored Yes 10/13/23 09:24 VICE PRESIDENT [employer]ELOPMENT.[email or web address] respirations Mental status Awake,Calm 10/13/23 09:24 [employer]ICE [employer]ELOPMENT.[email or web address] nausea No 10/13/23 09:24 VICE PRES[employer]ELOPMENT.[email or web address] Vomiting No 10/13/23 09:24 VICE PRESIDENT [employer]ELOPMENT.[email or web address] Anesthesia Postop Eval I: Fluid Summary Crystalloid volume administer 1,500 10/13/23 09:24 [employer]ICE [employer]ELOPMENT.JBLOU (ml) Colloids volume administered ( ml) Blood Product volume administered (ml) Total IV fluid infused 1,500 10/13/23 09:24 VICE PRESIDENT [employer]ELOPMENT.[email or web address] Anesthesia Postop Eval I: Summary Notes Anesthesia Complication No 10/13/23 09:24 VICE PRESIDENT [employer]ELOPMENT.JBLOU Anesthesia Complication Comment: Post-operative progress note Anesthesia: Postop Eval II Evaluation Mental status: Awake Pain Level: 0 nausea: No Vomiting: No
--- NOTE | 2023-10-13 09:55 | OP.PCM_ITS ---
Report of Operation Date of Procedure: 10/13/23 Description of Surgical Findings:: Preoperative diagnosis: 1. Right shoulder rotator cuff tear 2. Right shoulder subacromial impingement syndrome 3. Remote right long head biceps tendon rupture 4. Right acromioclavicular joint osteoarthritis Postoperative diagnosis: 1. Right shoulder rotator cuff tear 2. Right shoulder subacromial impingement syndrome 3. Degenerative labral tearing with long head biceps tendon rupture 4. Right acromioclavicular joint osteoarthritis Procedure 1. Right shoulder arthroscopic rotator cuff repair 2. Right shoulder arthroscopic subacromial decompression 3. Right shoulder debridement of biceps tendon, biceps labral junction, labrum, capsule, subacromial bursa Surgeon: Adrian Villalta DO Air Grinder: Barbara Sanchez PA-C Anesthesia: General LMA with interscalene block Prime Broker: Danny Velez CRNA Estimated blood loss: 5 cc IV fluids: Per anesthesia record Urine output: None recorded Packing/drains: None Implants: Arthrex fiber tack RC x 2, Arthrex 4.75 mm bio composite swivel lock anchor x 2 Preoperative indications: This is an active 68-year-old male seen in the outpatient setting with t right shoulder pain. He had profound weakness in his supraspinatus. MRI demonstrated a near complete full-thickness retracted tear of the supraspinatus. He also had findings of subacromial impingement syndrome with prominent subacromial spur, AC joint arthrosis which was symptomatic as well as remote appearing long head of biceps tendon tear. I recommend surgical intervention in the form of right shoulder arthroscopic rotator cuff repair, subacromial decompression, distal clavicle excision. Informed consent was obtained in the outpatient setting. Risks, benefits, terms the procedure reviewed with the patient at length and he agreed to proceed. Risk included but were not limited to bleeding, infection, loss of life or limb, need for additional surgery, persistent pain, nonhealing tendon or wounds, stiffness, neurovascular injury, DVT or PE. Patient expressed understanding of these risks and wished to proceed with surgery. Description of procedure: Patient was identified in preoperative holding area by name, medical record number, and date of . The operative extremity was ma rked. All questions were answered to the patient's satisfaction. An interscalene block was administered by anesthesia prior to the procedure. Patient was then brought to the operative suite at time of his procedure. He was positioned supine a sterile operating table. General anesthesia was induced and LMA was placed. Patient was then placed in lateral decubitus position with the right side up. A beanbag was used to hold the patient in the lateral decubitus position. An axillary roll was placed. Pillows were placed beneath and between his legs to for any bony prominences. We prepped and draped the right upper extremity in normal, sterile orthopedic fashion. The operative extremity was placed in traction utilizing arthroscopic bedroom with 15 pounds of tension applied to the operative extremity throughout the arthroscopic portion of the case. We performed a timeout with all parties in attendance in agreement with the side, site, and operation be performed. No concerns were voiced and we elected to proceed with surgery. 2 g Ancef was administered IV prior to incision by anesthesia staff. I first established a standard posterior portal 2 fingerbreadths inferior medial to the posterior lateral border of the scapular spine. Blunt tipped trocar and arthroscopic cannula was introduced into the glenohumeral joint. Joint was inflated with normal saline with epinephrine. Arthroscope was then introduced. Diagnostic arthroscopy was commenced. Most notably, the biceps tendon was ruptured with a remanent stump present. Standard interval portal was then established with an 11 blade scalpel. Biceps stump was debrided down to the level of the biceps labral junction which was also debrided. Degenerative labral fraying/tearing was noted from the 10:00 to 2 o'clock position debrided with a radial resector. Subscapularis was frayed without significant retraction. Glenohumeral cartilage demonstrated grade I chondromalacia. Thickened interval capsule was noted and debrided with the arthroscopic cautery. The articular side of the supraspinatus was then debrided with the radial resector. Approximately 90% of the articular side of the cuff was torn from the footprint. No loose bodies were identified. I then turned my attention to the subacromial space. Arthroscopic instruments were removed. I reentered the shoulder in the subacromial space with blunt ti pped trocar. Standard lateral portal was established with an 11 blade scalpel. Passport was placed for suture management during rotator cuff repair. I then skeletonized the undersurface of the acromion. A prominent downsloping spur from the anterior lateral surface of the acromion was identified. Acromioplasty was performed with the arthroscopic bur removing the spur. A tissue elevator was then used to probe the bursal side of the cuff. A full-thickness tear was easily generated at this point. Tear was debrided to a crescent shaped tear. I then exposed the supraspinatus footprint with the cautery device. The footprint was lightly decorticated with a bur. Subacromial bursa was debrided. Bursal side of the tendon tissue was debrided with a radial resector. I then proceeded with double row fixation. Via percutaneous portal, 2 fiber julio césar RC anchors were placed. Sutures were retrieved out the anterior portal. I then sequentially passed each limb of suture from the anchors. A total of 4 suture strands were placed through the supraspinatus tendon tissue near the musculotendinous junction. A single limb of each suture was then retrieved at the lateral portal and passed through the eyelet of a swivel lock anchor. Lateral row airplane pilot supervisor holes were established with the vendor supplied punch. I then completed our lateral row with fixation with tensioning of the sutures and placed in the swivel lock anchor with excellent cortical purchase. Excellent compression and reapproximation of the supraspinatus to his [place] footprint was achieved. I then turned my attention to the AC joint. The AC joint was opened along the inferior and anterior aspects of the capsule. Distal clavicle excision was performed in standard fashion removing approximately 8 mm distal clavicle with the arthroscopic bur. The superior and posterior aspects of the joint were left intact. I then thoroughly lavaged the subacromial space. Arthroscopic instruments were removed. Portal sites were closed in standard fashion with a [id number] 3- 0 nylon suture. Bulky sterile compression dressing was applied. Patient was placed in UltraSling. He tolerated the procedure well without apparent complication. He was safely awoken the operative suite and extubated. He was transferred to his gurney and subsequently to PACU in stable condition. Need for skilled speech pathologist assistant: Barbara Sanchez PA-C was critical to the outcome of the case. During the course of the procedure the physician speech pathologist assistant played a vital role. Her intimate knowledge of my steps in the procedure aided in safe and expedient completion of the procedure. The PA played a vital role in positioning particularly in obtaining the appropriate positioning. The PA was also vital in the retraction of soft tissues during the exposure and protecting vital structures. The PA was also vital and obtaining tendon reduction and assisting with hardware placement. She also played a vital role in closure and sling application with my direct supervision. Post Operative Plan: Weightbearing: Nonweightbearing right upper extremity, okay for pendulums. Range of motion of wrist elbow and hand as tolerated. Antibiotics: 2 g Ancef IV prior to incision DVT Prophylaxis: Restart Coumadin postoperative day #1 per managing physician. [place]: None Dressing: Maintain dressing x 2 days then ok to shower X-Rays: 2 weeks postop in the office Pain Medication: Oxycodone Rx upon discharge, Tylenol encouraged. No NSAIDs due to Coumadin. Follow-up: 2 weeks post-operatively in the office, physical therapy start in 2 weeks.
== END 2023-10-13 11:20 | disposition home or self-care (01) ==
LOC: SDC 05:35 → AC 05:35
PROVIDERS: Internal Medicine Cardiovascular Disease; PCP Family Medicine; Referring Provider Student in an Organized Health Care Education/Training Program; Visit Provider Student in an Organized Health Care Education/Training Program
PROC: (CPT 29827; principal; 2023-10-13 07:10)
DX: S46.011A Strain of muscle(s) and tendon(s) of the rotator cuff of right shoulder, initial encounter (principal); M19.011 Primary osteoarthritis, right shoulder; M75.41 Impingement syndrome of right shoulder; I10 Essential (primary) hypertension; Z79.899 Other long term (current) drug therapy; Z79.01 Long term (current) use of anticoagulants; X58.XXXA Exposure to other specified factors, initial encounter; Z95.2 Presence of prosthetic heart valve
CPT/HCPCS: 29827; 29826; 29823; 29824; 64415; 01630; 36415; 36416; 80048; 80061; 80076; 85025; 85610; C1713; J7120; J2405

== ENCOUNTER → 2023-11-20 | Outpatient (CLI) | payer BC, SELFPAY ==
--- NOTE | 2023-11-20 14:01 | CT_ITS ---
STUDY: CTA CHEST REASON FOR EXAM: Male, 68 years old. Dilated aortic root RADIATION DOSAGE (If Supplied By Facility): CTDIvol = ( 16.52 ) mGy, DLP = ( 605.99 ) mGycm TECHNIQUE: The examination was performed with the intravenous administration of IV 100mL Isovue-370. Post-processing of the angiographic images was performed, with multiplanar reformation and 3D reconstruction. Individualized dose optimization techniques were used for this CT. COMPARISON: Comparison is made with prior study January 12, 2018. FINDINGS: A left-sided pacemaker is seen. Normal enhancement of the main pulmonary artery and right and left pulmonary arteries. Normal enhancement of the bilateral peripheral pulmonary arteries. There is no demonstrated pulmonary embolism. There is aneurysmal dilatation of the ascending aorta. The transverse diameter of the ascending aorta measures 40.9 mm''s. There is a type I or type A dissection arising from the ascending thoracic aorta involving the proximal half of the descending thoracic aorta. Both the true and false lumina are patent. Sternal cerclage wires and vascular clips are present from a prior sternotomy and coronary artery bypass graft procedure (CABG). Coronary artery calcification. Normal mediastinum. Normal hilar regions. Normal visualized trachea and bronchi. The lungs are well expanded. Mild linear scarring and/or atelectasis seen at the left lung base. Normal pleura. Normal chest wall structures. There are degenerative changes of thoracic spine. Dextroscoliosis. 9.87 x 9.4 cm cyst in the upper pole of the left kidney. 2.4 cm cyst in the anterior aspect of the upper pole of the right kidney. 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 Both lumina are patent. Electronically Signed: Hayes Rivero MD at 14:04 EDT ,
[2023-11-20 14:31] LABS: CREATININE FINGERSTICK < 1.0 mg/dL (0.70-1.30); EGFR FINGERSTICK > 60.0000 mL/min (>60)
== END | disposition home or self-care (01) ==
LOC: CT 13:53
PROVIDERS: PCP Family Medicine; Referring Provider Internal Medicine Cardiovascular Disease; Visit Provider Internal Medicine Cardiovascular Disease
DX: Z95.2 Presence of prosthetic heart valve (principal); Z86.79 Personal history of other diseases of the circulatory system; Z98.890 Other specified postprocedural states
CPT/HCPCS: 71275

== ENCOUNTER → 2023-11-28 | Outpatient (CLI) | payer BC, SELFPAY ==
--- NOTE | 2023-11-28 11:11 | ECHOD_ITS ---
Reason For Study: Valve Replacement Procedure This was a 2D Doppler, Color Flow transthoracic echocardiogram. Exam performed in department. Left Ventricle Normal LV size. Moderate concentric left ventricular hypertrophy. Left ventricular systolic function is lower limits of normal. The left ventricular ejection fraction is 50 %. There is mild to moderate global hypokinesis of the left ventricle. Right Ventricle Normal RV size. ICD or pacer leads identified within the right ventricle. Normal systolic function. Atria The left atrium is mildly enlarged. The right atrium is mildly enlarged. Mitral Valve Normal mitral valve. Aortic Valve Peak aortic valve gradient 11 mmHg. Mean aortic valve gradient 5.6 mmHg. Stable appearing mechanical aortic valve apparatus. Pericardium/Pleural No pericardial effusion. MMode/2D Measurements & Calculations LVIDd: 5.4 cm IVSd: 1.6 cm LVOT diam: 2.8 cm LVIDs: 4.5 cm LVPWd: 1.6 cm FS: 17.6 % LVOT area: 6.4 cm2 Ao root diam: 3.8 cm LAV(MOD-bp): 67.5 ml LA dimension: 4.3 cm LVAd ap4: 43.7 cm2 LAV(MOD-bp) Indexed: 30.3 ml/m2 LVLd ap4: 8.8 cm LAV(MOD-sp2): 49.3 ml EDV(MOD-sp4): 183.7 ml LAV(MOD-sp4): 68.6 ml EDV(sp4-el): 184.1 ml LVAs ap4: 29.9 cm2 LVLs ap4: 7.9 cm ESV(MOD-sp4): 94.5 ml ESV(sp4-el): 95.8 ml EF(MOD-sp4): 48.6 % EF(sp4-el): 48.0 % SV(MOD-sp4): 89.2 ml SV(sp4-el): 88.3 ml LA A4 area: 22.3 cm2 TAPSE: 1.7 cm RA A4 area: 23.1 cm2 Time Measurements MV dec time: 0.23 sec Doppler Measurements & Calculations MV E max grant: 44.6 cm/sec Lat Peak E' Grant: 9.3 cm/sec Med Peak E' Grant: 5.9 cm/sec MV A max grant: 62.9 cm/sec E/E' lat: 4.8 E/E' med: 7.6 MV E/A: 0.71 MV V2 max: 65.6 cm/sec MV P1/2t max grant: 41.8 cm/sec Ao V2 max: 167.0 cm/sec MV max P.7 mmHg MV P1/2t: 67.3 msec Ao max P.2 mmHg MV V2 mean: 33.4 cm/sec MV dec slope: 182.2 cm/sec2 Ao V2 mean: 108.3 cm/sec MV mean P.55 mmHg Ao mean P.6 mmHg MV V2 VTI: 13.7 cm MVA(P1/2t): 3.3 cm2 Ao V2 VTI: 35.0 cm MVA(VTI): 8.6 cm2 AV (velocity ratio): 0.53 COLE(I,D): 3.4 cm2 COLE(V,D): 3.3 cm2 LV V1 max: 86.0 cm/sec SV(LVOT): 117.6 ml PA V2 max: 100.2 cm/sec LV V1 max P.0 mmHg PA max PG (full): 1.5 mmHg LV V1 mean P.3 mmHg LV V1 mean: 52.4 cm/sec LV V1 VTI: 18.4 cm ECHO/Echo Complete Interpretation Summary Normal LV size. Left ventricular systolic function is lower limits of normal. The left ventricular ejection fraction is 50 %. The left atrium is mildly enlarged. Moderate concentric left ventricular hypertrophy. Stable appearing mechanical aortic valve apparatus. Mean aortic valve gradient 5.6 mmHg. Ordering Physician: Jordan Duenas Referring Physician: Jordan Duenas Performed By: Jace Sol RCS
== END | disposition home or self-care (01) ==
PROVIDERS: PCP Family Medicine; Referring Provider Internal Medicine Cardiovascular Disease; Visit Provider Internal Medicine Cardiovascular Disease
DX: Z98.890 Other specified postprocedural states (principal); Z86.79 Personal history of other diseases of the circulatory system; Z95.2 Presence of prosthetic heart valve
CPT/HCPCS: 93306

== ENCOUNTER → 2024-03-23 | Outpatient (CLI) | payer BC, SELFPAY ==
[2024-03-23] VITALS (7 sets, daily range): BP systolic 126–148; BP diastolic 70–87; PULSE 100; RESP 16; O2SAT 94–97
--- NOTE | 2024-03-23 11:15 | MRI_ITS ---
STUDY: MR PROSTATE GLAND/ PELVIS WITH T WITHOUT CONTRAST REASON FOR EXAM: Male, 68 years old. ELEVATED PSA OF 4.5 TECHNIQUE: Standardized fat and water weighted pulse sequences were obtained in all 3 orthogonal planes, pre-and post contrast administration. IV 19cc clariscan was administered for the contrast portion of the examination. COMPARISON: CT of abdomen and pelvis dated February 15, 2021 FINDINGS: Prostate gland volume/size: 5.65 x 3.79 x 6.48 cm which is mildly enlarged. Anterior fibromuscular stroma: Normal. Peripheral zone: Coarse calcifications appear as low signal rodlike.] The bilateral peripheral zones. Diffuse nodularity with intervening intermediate to low signal linear fibrotic foci replacing the normally bright parenchyma is diffusely and throughout both the right and left size of the peripheral zones. No discretely enhancing mass or diffusion weighted signal indicating neoplasm is seen on the current exam. Postcontrast enhancement is symmetric and bilateral. Central zone: Diffusely heterogeneous and coarsened parenchyma, hyperplasia/hyperplastic nodules with intervening cysts and diffuse symmetric enhancement on both the right and left sides consistent with BPH. No visualized malignant mass in these regions on the current study. Transitional zone: Diffusely heterogeneous and coarsened parenchyma, hyperplasia/hyperplastic nodules with intervening cysts and diffuse symmetric enhancement on both the right and left sides consistent with BPH. No visualized malignant mass in these regions on the current study. Prostate capsule: Intact: Seminal vesicles: Normal fluid signal bilaterally. Pelvic sidewall lymphadenopathy: None demonstrated. Bony structures: No lytic or blastic or aggressive process. No demonstrated enhancing lesions. No bone marrow edema or infiltrative marrow replacement process is seen. No visualized pathologic fractures. Bladder: No demonstrated masses or filling defects/stones. Normal urinary bladder. Normal visualized small intestine. There are multiple colonic diverticula of the sigmoid colon consistent with chronic diverticulosis. Vessels: No significant or large aneurysm is demonstrated. There are diffuse degenerative changes of the visualized lumbar spine. Chronic pars interarticularis defects of L5 with significant anterolisthesis of L5 on S1 of 1.89 cm with severe bilateral foraminal stenosis with nerve root compression. Severe degenerative disc disease at L5-S1. Normal abdominal wall. MRI/Pelvis W/WO Contrast IMPRESSION: 1. Central, transitional, and peripheral zones of the prostate gland: Diffusely heterogeneous and coarsened parenchyma, hyperplasia/hyperplastic nodules with intervening cysts and diffuse symmetric enhancement on both the right and left sides consistent with BPH. No visualized malignant mass in these regions on the current study. 2. PI-RADS 2: low (clinically significant cancer is unlikely to be present) 3. Targeted image guided biopsy of nodules or area of interest can be performed for definitive pathologic assessment of the tissue and diagnosis 4. Prostate PET/CT exam can also be performed to determine if there is viable malignant neoplasm in the prostate gland. Prostate MRI reference: 15-30% of prostate cancers can go undetected on Prostate MRI. Monitoring and assessment by Primary physician, Urology, and oncology service recommended and treated clnically. (Cancers ([place]). 2022Mar 12;15(98):8456. doi: 10.3390/[id number] Prostate Cancers Invisible on Multiparametric MRI: Pathologic Features in Correlation with Whole-Mount Prostatectomy Rudolph Loyola 1,2,*, Carlito Archuleta 3, Theron Kessler 1,2, Fatuma Dixon 1,2, Adal Blum 4, Fox Chin 5, Daisha Duran 6, Aakash Peñaloza 1,2, Bruce Hess 1,2) Reference information: Normal prostate tissue Benign prostatic hypertrophy cancer/tumor - low signal peripheral , transitional, and central zones malignancy appears as bright on DWI and low signal on ADC map Prostate imaging-reporting and data system (PI-RADS) PI-RADS 1: very low (clinically significant cancer is highly unlikely to be present) PI-RADS 2: low (clinically significant cancer is unlikely to be present) PI-RADS 3: intermediate (the presence of clinically significant cancer is equivocal) PI-RADS 4: high (clinically significant cancer is likely to be present) PI-RADS 5: very high (clinically significant cancer is highly likely to be present) PI-RADS X: component of exam technically inadequate or not performed Prostate malignancy distribution: Peripheral zone: 70-80% Transitional zone: 10-20% Central zone: 5% or less Electronically Signed: Ashutosh Esteban MD at 16:44 EST ,
[2024-03-23 11:43] LABS: CREATININE FINGERSTICK < 1.0 mg/dL (0.70-1.30); EGFR FINGERSTICK > 60.0000 mL/min (>60)
== END | disposition home or self-care (01) ==
LOC: MRI 11:06
PROVIDERS: PCP Family Medicine; Referring Provider Urology; Visit Provider Urology
DX: R97.20 Elevated prostate specific antigen [PSA] (principal)
CPT/HCPCS: 72197; A9575

== ENCOUNTER → 2024-04-06 | Outpatient (CLI) | payer BC, SELFPAY ==
[2024-04-06 17:05] LABS: Absolute Neutrophil Count 4.1 X10^3/uL (2.0-7.7); Basophil# 0.04 X10^3/uL; Basophil% 0.6 % (0-1); Eosinophil# 0.28 X10^3/uL; Hematocrit 50.3 % (40-54); Hemoglobin 16.9 g/dL (13.0-16.5); Lymphocyte % 22.8 % (19-41); Mean Corp Hgb Conc 33.6 g/dL (32-36); Mean Corpuscular Hgb 31.3 pg (27.0-32.0); Mean Corpuscular Volume 93.1 fL (80-94); Monocyte# 0.98 X10^3/uL; NRBC Flagged by Analyzer 0 % (0-5); Neutrophil # 4.08 X10^3/uL (2.7-7.7); Neutrophil % 58.2 % (47-70); Platelet Count 189 K/mm3 (150-450); RBC Distribution Width CV 13.8 % (11.6-14.6); RBC Distribution Width SD 47.1 fl (35.1-43.9)
== END | disposition home or self-care (01) ==
LOC: LAB 16:28
PROVIDERS: PCP Family Medicine; Referring Provider Nurse Practitioner Family; Visit Provider Nurse Practitioner Family
DX: I47.29 Other ventricular tachycardia (principal)
CPT/HCPCS: 36415; 80053; 83735; 84439; 84443; 85025

== ENCOUNTER → 2024-04-09 | Outpatient (CLI) | payer BC, SELFPAY ==
[2024-04-09 09:32] LABS: ALB/GLOB Ratio 0.9 RATIO (0.9-2.4); AST(SGOT) 39 U/L (15-37); Alanine Aminotransfer ALT/SGPT 34 U/L (16-61); Albumin, Serum 3.5 g/dL (3.2-5.0); Alkaline Phosphatase 47 U/L (45-117); Anion Gap 4 (5-15); BUN 14 mg/dL (7-18); BUN/Creat Ratio 14.1 RATIO (10-20); Calcium,Total 9.5 mg/dL (8.5-10.1); Chloride 104 mmol/L (98-107); EST Glomerular Filtration Rate 80 mL/min (>60); Est Glom Filt Rate - Afr Amer 97 mL/min (>60); Globulin 3.8 g/dL (2.2-4.2); Glucose 104 mg/dL (74-106); Magnesium 2.3 mg/dL (1.6-2.6); Potassium 4.5 mmol/L (3.5-5.1); Protein, Total 7.3 g/dL (6.4-8.2); Sodium Level 135 mmol/L (136-145); T4 Free Direct 0.98 ng/dL (0.76-1.46)
== END | disposition home or self-care (01) ==
PROVIDERS: PCP Family Medicine; Referring Provider Internal Medicine Cardiovascular Disease; Visit Provider Internal Medicine Cardiovascular Disease
DX: I47.29 Other ventricular tachycardia (principal); I48.92 Unspecified atrial flutter
CPT/HCPCS: 80053; 83735; 84439; 84443

== ENCOUNTER → 2024-06-22 | Outpatient (CLI) | payer SELFPAY ==
--- NOTE | 2024-06-22 11:01 | CT_ITS ---
EXAM: CT head without contrast. CLINICAL HISTORY: Right-sided headache for several weeks. History of hypertension. No known injury. COMPARISON: None available. TECHNIQUE: Noncontrast CT imaging of the head is performed. FINDINGS: There is no evidence of cerebral hemorrhage or cerebral edema. No abnormal focal mass effect or hypodensity is seen in the brain. There is no evidence of midline shift. Ventricular system and ambient cisterns are normal. Relative preservation of whole-brain mass for age is noted. There is no evidence of subdural hematoma. Calvarium is normal. Moderate nodular mucosal thickening is seen along the inferior aspects of both maxillary sinuses which are incompletely visualized single this appears more severe on the right, however. CT/Brain/Head without Contrast IMPRESSION: No evidence of intracranial hemorrhage. Bilateral maxillary sinusitis. Reading Location: [place] [id number]
== END | disposition home or self-care (01) ==
PROVIDERS: PCP Family Medicine; Referring Provider Family Medicine; Visit Provider Family Medicine
DX: R51.9 Headache, unspecified (principal)
CPT/HCPCS: 70450

== ENCOUNTER → 2024-07-22 | Outpatient (CLI) | payer BC, SELFPAY ==
[2024-07-22 15:50] LABS: Anion Gap 11 (5-15); BUN 17 mg/dL (4-19); Carbon Dioxide 25.5 mmol/L (21.0-32.0); Chloride 99 mmol/L (98-108); Creatinine, Serum 0.87 mg/dL (0.70-1.20); EST Glomerular Filtration Rate 95 (>60); Glucose 91 mg/dL (70-99); Potassium 4.1 mmol/L (3.3-5.1); Sodium Level 135 mmol/L (133-145)
== END | disposition home or self-care (01) ==
LOC: LAB 14:22
PROVIDERS: PCP Family Medicine; Referring Provider Internal Medicine Cardiovascular Disease; Visit Provider Internal Medicine Cardiovascular Disease
DX: I47.29 Other ventricular tachycardia (principal)
CPT/HCPCS: 36415; 80048; 83735; 84443

== ENCOUNTER → 2024-08-18 | Outpatient (CLI) | payer BC, SELFPAY ==
--- NOTE | 2024-08-18 08:00 | ECHOD_ITS ---
Reason For Study Reason For Study: ARRHYTHMIA Procedure This was a 2D Doppler, Color Flow transthoracic echocardiogram. Exam performed in department. Left Ventricle Normal LV size. The estimated ejection fraction is 47 %. There is mild global hypokinesis of the left ventricle. Right Ventricle Normal RV size. ICD or pacer leads identified within the right ventricle. Normal systolic function. Atria Normal left atrium. Normal right atrium. Mitral Valve Normal mitral valve. Mild (1+) eccentric mitral valve insufficiency. Tricuspid Valve Normal tricuspid valve. Aortic Valve Peak aortic valve gradient 11 mmHg. Mean aortic valve gradient 7 mmHg. Stable appearing mechanical aortic valve apparatus. Pulmonic Valve Normal pulmonic valve. Mild (1+) pulmonic valve insufficiency. Great Vessels Aortic root graft. Normal size. The pulmonary artery is normal size. Inferior vena cava collapse with respiration. Pericardium/Pleural No pericardial effusion. MMode/2D Measurements & Calculations LVIDd: 5.7 cm IVSd: 1.4 cm LVOT diam: 2.6 cm LVIDs: 4.3 cm LVPWd: 1.4 cm LVOT area: 5.2 cm2 RVDd: 4.4 cm FS: 24.8 % asc Aorta Diam: 3.5 cm LAV(MOD-bp): 47.5 ml LVAd ap4: 37.3 cm2 LAV(MOD-bp) Indexed: 21.4 ml/m2 LVLd ap4: 9.1 cm LAV(MOD-sp2): 45.5 ml EDV(MOD-sp4): 129.6 ml LAV(MOD-sp4): 45.3 ml EDV(sp4-el): 129.4 ml LVAs ap4: 24.7 cm2 LVLs ap4: 7.7 cm ESV(MOD-sp4): 65.9 ml ESV(sp4-el): 67.7 ml EF(MOD-sp4): 49.2 % EF(sp4-el): 47.7 % LVAd ap2: 39.7 cm2 SV(MOD-sp4): 63.7 ml SV(MOD-sp2): 71.0 ml LVLd ap2: 9.0 cm SI(MOD-sp4): 28.7 ml/m2 SI(MOD-sp2): 32.0 ml/m2 EDV(MOD-sp2): 147.8 ml EDV(sp2-el): 149.4 ml LVAs ap2: 26.6 cm2 LVLs ap2: 7.9 cm ESV(MOD-sp2): 76.8 ml ESV(sp2-el): 76.3 ml EF(MOD-sp2): 48.1 % SV(sp4-el): 61.7 ml Ao sinus diam: 3.6 cm LA A4 area: 16.9 cm2 LA dimension(2D): 4.3 cm RA A4 area: 18.9 cm2 TAPSE: 2.0 cm Time Measurements MV dec time: 0.22 sec Doppler Measurements & Calculations MV E max grant: 36.4 cm/sec Lat Peak E' Grant: 7.3 cm/sec Med Peak E' Grant: 5.6 cm/sec MV A max grant: 71.9 cm/sec E/E' lat: 5.0 E/E' med: 6.5 MV E/A: 0.51 Ao V2 max: 169.3 cm/sec LV V1 max: 116.7 cm/sec MV dec slope: 165.5 cm/sec2 Ao max P.5 mmHg LV V1 max P.4 mmHg Ao V2 mean: 127.1 cm/sec LV V1 mean P.9 mmHg Ao mean P.9 mmHg LV V1 mean: 96.1 cm/sec Ao V2 VTI: 30.2 cm LV V1 VTI: 22.8 cm AV (velocity ratio): 0.75 COLE(I,D): 3.9 cm2 COLE(V,D): 3.6 cm2 SV(LVOT): 117.4 ml PA V2 max: 114.6 cm/sec PI end-d grant: 107.7 cm/sec TR max grant: 208.2 cm/sec TR max P.3 mmHg ECHO/Echo Complete Interpretation Summary Normal LV size. Stable appearing mechanical aortic valve apparatus. Mean aortic valve gradient 7 mmHg. Compared to the previous the ejection fraction is pretty similar and the aortic valve gradients are the same. The estimated ejection fraction is 47 %. Ordering Physician: Jordan Duenas Referring Physician: Mike Dale MD Performed By: Madina Jain RDCS
== END | disposition home or self-care (01) ==
PROVIDERS: PCP Family Medicine; Referring Provider Internal Medicine Cardiovascular Disease; Visit Provider Internal Medicine Cardiovascular Disease
DX: I47.29 Other ventricular tachycardia (principal)
CPT/HCPCS: 93306

== ENCOUNTER → 2024-10-25 | Outpatient (CLI) | payer BC, SELFPAY ==
[2024-10-25 15:49] LABS: PSA,Total- Diagnostic 2.42 ng/mL (0.00-4.00)
== END | disposition home or self-care (01) ==
LOC: LAB 14:01
PROVIDERS: PCP Family Medicine; Referring Provider Nurse Practitioner; Visit Provider Nurse Practitioner
DX: R97.20 Elevated prostate specific antigen [PSA] (principal)
CPT/HCPCS: 36415; 84153